=== PATIENT | male | born 1985 | race American Indian/Alaskan Native ===

== ENCOUNTER 2016-10-07 06:19 | Day surgery (SDC) | payer BC ==
[2016-10-07] MEDS ORDERED: ECOTRIN PO ONE (07:13)
[2016-10-07 07:35] LABS: Eosinophils % (Auto) 5.4 % (0.0-4.3); Hematocrit 45.4 % (35.5-45.6); Hemoglobin 14.8 gm/dl (11.8-15.2); Mean Corpuscular HGB Conc 33 % (32-34); Mean Corpuscular Hemoglobin 30 pg (28-32); Mean Corpuscular Volume 92 fl (84-94); Platelet Count 169 K/mm3 (140-440); Red Blood Count 4.92 M/mm3 (3.65-5.03); White Blood Count 6.8 K/mm3 (4.5-11.0)
[2016-10-07 07:45] LABS: INR 0.98 (0.87-1.13)
[2016-10-07 07:55] LABS: Anion Gap 15 mmol/L; Blood Urea Nitrogen 8 mg/dL (9-20); Calcium 8.9 mg/dL (8.4-10.2); Carbon Dioxide 26 mmol/L (22-30); Chloride 105.3 mmol/L (98-107); Glucose 94 mg/dL (75-100); Potassium 4.3 mmol/L (3.6-5.0); Sodium 142 mmol/L (137-145)
[2016-10-07] MEDS ORDERED: NACL 0.9% 500 ML 500 ML IV SCH (08:00)
[2016-10-07] MEDS ORDERED: HEPARIN/NS 5000 UNIT/500ML(CATH LAB) 1,000 ML IR ONE (08:57)
[2016-10-07] MEDS ORDERED: NITROGLYCERIN SYRINGE 3 ML ONE (08:57)
[2016-10-07] MEDS ORDERED: CALAN ONE (08:57)
[2016-10-07] MEDS ORDERED: HEPARIN 10,000 UNITS/10 ML ONE (08:57)
[2016-10-07] MEDS: VERSED ONE ×3 (09:44→10:02)
[2016-10-07] MEDS: SUBLIMAZE ONE ×2 (09:44→09:59)
[2016-10-07] MEDS: XYLOCAINE 2% INFILTRATI ONE ×2 (09:57→10:06)
[2016-10-07] MEDS ORDERED: TYLENOL PO ONE (10:27)
[2016-10-07] MEDS ORDERED: ULTRAM PO PRN (10:37)
--- NOTE | 2016-10-07 10:43 | Discharge Summary ---
Short Stay Discharge Plan Activity: advance as tolerated Weight Bearing Status: Partial Weight Bearing Diet: low fat, low cholesterol, low salt Wound: keep clean and dry Special Instructions: no heavy lifting (3 days) Follow up with: KAILEY BRITO [Other] - 7 Days BRITT CARVALHO MD [Staff Physician] - 7 Days
[2016-10-07] MEDS ORDERED: NACL 0.9% 1000 ML 1,000 ML IV SCH (11:00)
--- NOTE | 2016-10-07 12:24 | Cardiac Catherization Report ---
CARDIAC CATHETERIZATION REPORT PROCEDURE: Cardiac catheterization with coronary angiography and left ventricle angiography. DESCRIPTION OF PROCEDURE: The patient was prepped and draped in a sterile fashion after informed consent. The right femoral artery was entered using the Seldinger technique followed by placement of a 6-Mongolian sheath. Selective left and right coronary angiography was performed with a #3.5 left Andrew, and a #4 right Andrew catheter. The pigtail catheter was used for left ventricle angiography. The catheters were removed, sheath removed, and hemostasis achieved using an Angio-Seal device. The patient was returned to the postprocedure unit in stable condition. There were no complications. FINDINGS: HEMODYNAMICS: Left ventricle end diastolic pressure was 13, following coronary angiography. Ascending aortic pressure was 111/77. There was no significant pressure gradient on pullback across the aortic valve. CORONARY ANGIOGRAPHY: The left main coronary artery was angiographically normal. The left anterior descending artery and its diagonal branches were angiographically normal. The circumflex artery and its obtuse marginal branches were angiographically normal. The right coronary artery was dominant and similarly angiographically normal. Left ventricular systolic function was well preserved with an ejection fraction of 55%-60%. CONCLUSION: 1. Angiographically normal coronary arteries. 2. Normal left ventricular systolic function, ejection fraction 55%-60%. RECOMMENDATION: Risk factor modification and medical therapy. JOB# [id number] DAREN/YOMAIRA
[2016-10-07 13:30] VITALS: BP 114/75
== END 2016-10-07 13:45 | disposition home or self-care (01) ==
LOC: OPU 06:19
PROVIDERS: ATTEND Internal Medicine Cardiovascular Disease
DX: R07.9 Chest pain, unspecified (principal); Z72.89 Other problems related to lifestyle
CPT/HCPCS: 36415; 80048; 85025; 85610; 85730; 93005; 93010; 93458; C1760; C1894; J1644; J2250; J3010; J7040; Q9967